=== PATIENT | female | born 1960 | race Caucasian/White ===

== ENCOUNTER 2018-04-04 19:22 | Emergency (ER) | payer OTHER ==
[~2018-04-04] VITALS: Ht 157.5 cm; Wt 51.5 kg
[~2018-04-04 19:22] MED LIST: ASPIR 8181 MG PO; ATORVASTATIN CA40 MG PO; CRESTOR40 MG PO; NITROGLYCERIN0.4 MG SUBLING; PROTONIX 20 MG20 M1 PO
[2018-04-04] MEDS ORDERED: ZYRTEC10 M5 PO (19:32)
[2018-04-04] MEDS ORDERED: SYNTHROID175 MCG PO (19:33)
[2018-04-04] MEDS ORDERED: LIPITOR 20 MG T20 M1 PO (19:33)
[2018-04-04 20:02] LABS: ABSOLUTE EOSINOPHILS 0.1 thou/uL (0.0-0.7); ABSOLUTE LYMPHOCYTES 1.4 thou/uL (0.8-5.3); ABSOLUTE MONOCYTES 0.6 thou/uL (0.0-1.2); ABSOLUTE NEUTROPHILS 6.6 thou/uL (1.6-8.1); BASOPHILS 0.5 %; EOSINOPHILS 1.2 %; HEMOGLOBIN 13.9 gm/dL (12.0-15.0); LYMPHOCYTES 15.8 %; MCH 32.6 pg (26.0-34.0); MCV 95.8 fL (80.0-100.0); MONOCYTES 7.2 %; MPV 7.8 fl. (7.2-11.1); NUCLEATED RBCS 0 /100WBC; PLATELET COUNT* 234 thou/uL (150-400); POLYS 75.3 %; RBC 4.28 mil/uL (4.20-5.00); WBC 8.7 thou/uL (4.0-11.0)
[2018-04-04 20:11] LABS: ANION GAP 14 mmol/L (7-16); BUN 11 mg/dL (7-18); CHLORIDE 95 mmol/L (98-107); CO2 22 mmol/L (21-32); CREATININE 0.8 mg/dL (0.6-1.3); GLUCOSE 108 mg/dL (70-99); POTASSIUM 3.6 mmol/L (3.5-5.1); SODIUM 131 mmol/L (136-145)
[2018-04-04 20:21] LABS: ALBUMIN 4.1 g/dL (3.4-5.0); ALKALINE PHOSPHATASE 111 U/L (46-116); LIPASE 82 U/L (73-393); NT-PRO BRAIN NAT PEPTIDE 101 pg/mL (<300); SGOT 57 U/L (15-37); SGPT 47 U/L (30-65); TOTAL BILIRUBIN 0.6 mg/dL (<0.1-1.0); TOTAL PROTEIN 8.1 g/dL (6.4-8.2); TROPONIN-I LEVEL <0.06 ng/mL (<0.06)
[2018-04-04 21:38] LABS: URINE BILIRUBIN 1+ (Negative); URINE BLOOD 2+ (Negative); URINE CLARITY CLEAR; URINE COLOR YELLOW; URINE GLUCOSE-RANDOM NEGATIVE (Negative); URINE KETONES 3+ (Negative); URINE LEUKOCYTES-REFLEX NEGATIVE (Negative); URINE NITRITE-REFLEX NEGATIVE (Negative); URINE PROTEIN TRACE (Negative); URINE SPECIFIC GRAVITY 1.025 (1.005-1.030); URINE UROBILINOGEN 0.2 E.U./dl (0.2-1.0)
[2018-04-04 21:39] LABS: ICTOTEST (BILI CONFIRMATORY) Negative (Negative)
[2018-04-04 21:47] LABS: AMORPHOUS URATES Few /LPF (None Seen); BACTERIA-REFLEX >30 Many /HPF (None Seen); FINE GRANULAR CASTS 0-3 Few /LPF (None Seen); HYALINE CASTS 0-3 Few /LPF (None Seen); MUCUS 4-6 Moderate strn/LPF (None Seen); SQUAMOUS 0-3 Few /LPF (0-3); URINE RBC 3-10 Few /HPF (0-2); URINE WBC-REFLEX None Seen /HPF (0-5)
[2018-04-04] MEDS ORDERED: ULTRAM 50MG TAB50 MG PO (21:51)
[2018-04-04 22:08] VITALS: BP 126/65
--- NOTE | 2018-04-05 14:50 | EKG ---
[place] [address] ELECTROCARDIOGRAM REPORT Name: MISAELDAVID Conde Room: [facility]#: [id number] Admission: 04/04/18 Attend Phys: Discharge: 04/04/18 Date of : 56 Report #: [id number] THIS REPORT FOR: //name// [facility] ED Test Date: 2018-04-04 Test Time: 19:42:58 Pat Name: DAVID DOUGLAS Department: Room: Gender: F [employer]: FUENTES : 1960 Requested By: Ines Posada Order Number: [id number] MD: Farhan Golden Measurements Intervals Armstrong Rate: 65 P: 70 TN: 142 QRS: 70 QRSD: 85 T: 66 QT: 403 QTc: 419 Interpretive Statements Sinus rhythm Baseline wander in lead(s) V6 Compared to ECG 07/19/2016 11:08:46 No significant changes Electronically Signed On 04-05-2018 14:50:27 CDT by Farhan Golden [email or web address] <ELECTRONICALLY SIGNED> By: Farhan Golden MD, [facility] 04/05/18 1450 41 41 Farhan Golden MD, FACC /EPI
== END 2018-04-04 22:10 | disposition home or self-care (01) ==
LOC: M.ERS 19:22
PROVIDERS: Nurse Practitioner
DX: K52.9 Noninfective gastroenteritis and colitis, unspecified (principal); E03.9 Hypothyroidism, unspecified; E78.5 Hyperlipidemia, unspecified; Z90.710 Acquired absence of both cervix and uterus; Z88.1 Allergy status to other antibiotic agents; Z88.6 Allergy status to analgesic agent